=== PATIENT | female | born 1985 | race Caucasian/White ===

== ENCOUNTER → 2017-10-28 16:27 | Outpatient (CLI) | payer OTHER, MEDICAID, SELFPAY ==
[2017-10-28 18:38] LABS: Follicle Stimulating Hormone 2.44 mIU/mL
[2017-10-28 18:51] LABS: TSH w/ Reflex to FT4 2.49 uIU/mL (0.47-4.68)
[2017-11-01 16:22] LABS: Progesterone 13.5 ng/mL
[2017-11-02 15:13] LABS: Estrogen 319.5 pg/mL
== END ==
PROVIDERS: PCP Family Medicine; Visit Provider Family Medicine
DX: N92.6 Irregular menstruation, unspecified (principal)
CPT/HCPCS: 36415; 82672; 83001; 84144; 84443

== ENCOUNTER → 2019-09-28 08:39 | Outpatient (CLI) | payer OTHER, SELFPAY ==
--- NOTE | 2019-09-28 08:41 | DI.CT.S_ITS ---
PROCEDURE: CT SINUS SCREEN WO CON INDICATIONS: recurrent sinus infection TECHNIQUE: Noncontrast 3.0 mm axial images acquired from the frontal sinuses to the mid-sella, with coronal and sagittal reformats. For radiation dose reduction, the following was used: automated exposure control, adjustment of mA and/or kV according to patient size. COMPARISON: None. FINDINGS: Image quality: Excellent. Maxillary Sinuses: No bony remodeling or destruction. Sinuses are clear. Ethmoid Air Cells: No bony remodeling or destruction. Sinuses are clear. Sphenoid Sinuses: No bony remodeling or destruction. Sinuses are clear. Frontal Sinuses: No bony remodeling or destruction. Sinuses are clear. Ostiomeatal Complexes: Ostiomeatal complexes are patent. The ostiomeatal complexes are constitutionally narrowed with infraorbital septations, left more prominent than right. Miscellaneous: Visualized intra-orbital contents are normal. Bilateral lashae bullosa are seen, left larger than right. There is mild to moderate rightward nasal septal deviation. IMPRESSION: No significant active paranasal sinus disease is seen. Bilateral lashae bullosa with mild to moderate rightward nasal septal deviation. Narrowed ostiomeatal complexes. Dictated by: René Ortiz M.D. on 09/28/2019 at 8:26 Approved by: René Ortiz M.D. on 09/28/2019 at 8:27
== END ==
PROVIDERS: PCP Family Medicine; Referring Provider Family Medicine; Visit Provider Family Medicine
DX: J32.9 Chronic sinusitis, unspecified (principal); J34.3 Hypertrophy of nasal turbinates; J34.2 Deviated nasal septum
CPT/HCPCS: 70486

== ENCOUNTER → 2020-04-22 12:11 | Outpatient (CLI) | payer OTHER, SELFPAY ==
--- NOTE | 2020-04-22 12:12 | DI.RAD.S_ITS ---
PROCEDURE: XR CERVICAL SPINE 2V OR 3V INDICATIONS: neck pain with radiculopathy right arm TECHNIQUE: 3 view(s) of the cervical spine were acquired. COMPARISON: None. FINDINGS: Bones: No fractures or dislocations to the T1 level. The lateral masses of C1 appear intact on the odontoid view. No suspicious bony lesions. Soft tissues: No prevertebral soft tissue swelling. IMPRESSION: Mild C5-6 joint space narrowing, no subluxation found. No trauma or subluxation identified. Dictated by: Lloyd Duke M.D. on 04/22/2020 at 14:28 Approved by: Lloyd Duke M.D. on 04/22/2020 at 14:29
== END ==
PROVIDERS: PCP Family Medicine; Referring Provider Family Medicine; Visit Provider Family Medicine
DX: M54.2 Cervicalgia (principal); M48.02 Spinal stenosis, cervical region; M54.12 Radiculopathy, cervical region
CPT/HCPCS: 72040

== ENCOUNTER → 2022-07-27 09:52 | Outpatient (CLI) | payer OTHER, SELFPAY ==
[2022-07-27 12:29] LABS: Free T4, Direct Thyroxine 0.92 ng/dL (0.78-2.19)
[2022-07-27 12:43] LABS: Thyroid Stimulating Hormone 4.21 uIU/mL (0.47-4.68)
[2022-07-28 06:36] LABS: Varicella IgG Antibody 1363 index (Immune >165)
[2022-08-06 04:36] LABS: Anti Mullerian Hormone 0.841 ng/mL (.)
== END ==
PROVIDERS: PCP Family Medicine; Referring Provider Obstetrics & Gynecology; Visit Provider Obstetrics & Gynecology
DX: Z31.69 Encounter for other general counseling and advice on procreation (principal)
CPT/HCPCS: 36415; 82397; 84439; 84443; 86762; 86787

== ENCOUNTER 2024-10-24 00:39 | Emergency (ER) | payer BC, SELFPAY ==
[2024-10-24 00:58] VITALS: BP 119/66; PULSE 61; RESP 17; TEMP 36.6; O2SAT 97; BMI 23.5
--- NOTE | 2024-10-24 02:11 | ED_ITS ---
HPI - Skin/Abscess/Foreign Bdy General Chief complaint: Skin/Abscess/Foreign Body Stated complaint: Piece of earbud stuck in rt ear Time Seen by Provider: 10/24/24 02:09 Source: patient Mode of arrival: Ambulatory Limitations: no limitations History of Present Illness HPI narrative: 39-year-old female presenting for foreign body to the ear, states that she placed a ear bud in the right ear proximally 2 hours ago and it got stuck. Denies any other injury or issues at this time. Related Data Previous Rx's ?Medication ?Instructions ?Recorded dextroamphetamine-amphetamine 5 mg 5 mg PO BID #60 tab s 04/14/24 tablet (Adderall) dextroamphetamine-amphetamine 5 mg 5 mg PO BID #60 tab s 04/14/24 tablet (Adderall) dextroamphetamine-amphetamine 5 mg 5 mg PO BID #60 tab s 04/14/24 tablet (Adderall) Allergies Allergy/AdvReac Type Severity Reaction Status Date / Time No Known Drug Allergies Allergy Verified 10/24/24 00:58 Review of Systems Review of Systems Narrative: General: Denies fever, chills, weight loss HEENT: Positive foreign body of the right ear Denies headache, eye drainage, eye irritation, head trauma, sore throat, voice change Cardiovascular: Denies any chest pain, palpitations, tachycardia Respiratory: Denies any shortness of breath, cough, wheeze, stridor GI/: Denies any abdominal pain, nausea, vomiting, diarrhea, bright red blood per rectum, melanotic stools, urinary frequency, urinary retention, dysuria, hematuria MSK: Denies any joint pain, muscle pains, swelling Skin: Denies any rashes, lesions, discoloration Neuro: Denies any headache, lightheadedness, dizziness, fainting, weakness Psych: Denies SI/HI Patient History Medical History Attention deficit disorder Acne Chronic headaches Anxiety Depression Asthma Hayfever Bulimia Surgical History History of dilation and curettage (~2001) [place] teeth extracted Family History (Updated 11/10/23 @ 11:15 by Marni Ramos RN) Father Family estrangement Narcissistic personality disorder Grandfather Dementia Prostate cancer Grandmother Breast cancer Grandfather Heart disease Hypertension High cholesterol Mental health problem Diabetes mellitus Stroke Mother Abnormal skin growth Preeclampsia Aunt Diabetes mellitus Uncle Heart attack Drug abuse Family/Other Congenital malformation due to thalidomide Social History marital status: number of children: 0 household members: spouse lives independently: Yes caregiver/support person: No housing: house pets and animals: Yes (dogs) education level: college (some college) 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) current occupational exposures/hazards: No special hebert needs: No travel history: over 6 months ago seatbelt use: always helmet use: Yes water heater temp set < 120 deg: Yes working smoke detector in home: Yes fire extinguisher in home: Yes carbon monox detector in home: Yes firearms in home: Yes firearms unloaded and locked: Yes do you feel safe at home: Yes second hand exposure: No alcohol intake: former (very occasionally prior to ) substance use type: does not use and marijuana (occasional edibles when slipped disc in neck acts up, not while /) during the past year weight has: decreased > 10 lbs (intentional w/ diet and exercise) well-balanced diet: rarely or never daily servings fruits/ve-1 caffeine: No (stopped w/ ) eating out: rarely or never Type(s) of exercise: weight lifting and running frequency: 3-4 times per week duration: 15-30 minutes/day Smoking Status: Never smoker Exam Narrative Exam Narrative: General: Cooperative, well-developed, not in acute distress HEENT: Yellow foreign body noted to the right ear Normocephalic, atraumatic, PERRLA, normal sclera, eyelids normal Neck: Active full range of motion, atraumatic Chest: Normal to inspection, negative crepitus, no overlying erythema ecchymo sis Respiratory: Normal respiratory effort, not in acute respiratory distress, clear to auscultation bilaterally negative cough, wheeze, tachypnea, rhonchi, rales Cardiology: Regular rate rhythm negative gallop, murmur, rubs GI/: No tenderness to palpation, soft, non rigid, normal to inspection, exam deferred MSK: Full active range of motion in all 4 extremities, atraumatic, no tenderness to palpation of any bony prominences Skin: No rashes or lesions noted Neuro: Alert awake oriented x3, moves all 4 extremities spontaneously, cranial nerves intact, able to answer all questions appropriately follows commands appropriately Psych: Cooperative, negative suicidal or homicidal ideations Initial Vital Signs Initial Vital Signs: Vital Signs Temperature 97.9 F 10/24/24 00:58 Pulse Rate 61 10/24/24 00:58 Respiratory Rate 17 10/24/24 00:58 Blood Pressure 119/66 10/24/24 00:58 Pulse Oximetry 97 10/24/24 00:58 Oxygen Delivery Method Room Air 10/24/24 00:58 Course Vital Signs Vital signs: Vital Signs - 8 hr 10/24/24 00:58 Temperature 97.9 F Pulse Rate 61 Respiratory Rate 17 Blood Pressure 119/66 Pulse Oximetry 97 Oxygen Delivery Method Room Air MDM - Skin/Abscess/Foreign Bdy Differential Diagnosis Differential diagnosis: Likely other (Otitis media, otitis externa, foreign body) MDM Narrative Medical decision making narrative: Patient is a 39-year-old female presenting for foreign body of the right ear, states 2 hours ago was using an ear bud and it got stuck, on exam yellow ear bud was noted in the inner ear canal was able to remove with alligator forceps, post removal did not show any abrasion laceration no indication for further intervention or workup at this time. Patient was given strict return precautions verbalized understanding of this and agrees to being discharged home with outpatient follow up Discharge Plan Departure Patient Disposition: Home Clinical Impression: Foreign body in ear Activity Restrictions/Additional Instructions: Please follow up with the primary care doctor as needed Please read the discharge instructions sheet carefully and bring all papers to all doctor follow-up visits, as it may contain information that your doctor may want to see. Disease processes change and evolve, if your symptoms worsen or if you develop any new symptoms that are concerning to you please return for evaluation. Your evaluation today does not show any evidence of any life- threatening/serious illnesses requiring admission to the hospital or surgery. Please follow-up with your doctor for re-evaluation in approximately 1 day. Seek immediate medical attention for any worrisome symptoms. *If you do not have a primary care provider please contact the [facility] Resource line at [phone]. They will ask some questions about your medical history and help get you set up with a doctor in the community. Prescriptions: No Action dextroamphetamine-amphetamine [Adderall] 5 mg tablet 5 mg PO BID Qty: 60 0RF Rx Instructions: Refill 1 dextroamphetamine-amphetamine [Adderall] 5 mg tablet 5 mg PO BID Qty: 60 0RF Rx Instructions: administer doses at least 4-6 hours apart Refilled 2 dextroamphetamine-amphetamine [Adderall] 5 mg tablet 5 mg PO BID Qty: 60 0RF Rx Instructions: administer doses at least 4-6 hours apart Refill 3 Referrals: Igor Resendez DO [Primary Care Provider, Family Practice] Stand Alone Forms: Patient Portal/API
[2024-10-24 02:24] VITALS: BP 106/59; PULSE 78; RESP 16; O2SAT 98
== END 2024-10-24 02:29 | disposition home or self-care (01) ==
PROVIDERS: Emergency Provider Student in an Organized Health Care Education/Training Program; PCP Family Medicine
DX: T16.1XXA Foreign body in right ear, initial encounter (principal); W44.G1XA Audio device entering into or through a natural orifice, initial encounter
CPT/HCPCS: 69200; 99281; 99282

== ENCOUNTER → 2024-12-20 08:32 | Outpatient (CLI) | payer BC, SELFPAY ==
--- NOTE | 2024-12-20 08:33 | DI.US.S_ITS ---
PROCEDURE: US OB <= 14 WEEKS FETUS INDICATIONS: DATING AND VIABILITY OUTSIDE/PRIOR DATING DATA: Last menstrual period (LMP): 11/05/2024. LMP-based estimated date of delivery (DILMA): 08/12/2025. First dating scan (date and location): 12/20/2024. TECHNIQUE: Real-time scanning was performed of the fetus and maternal pelvic organs, with image documentation. Endovaginal scanning was also performed to better visualize the fetus and maternal ovaries. COMPARISON: None. FINDINGS: Embryo: No intrauterine gestational sac. No pole. Heart rate: Not detected at this time. Maternal organs: Ovaries are thin normal limits. Left ovarian anechoic cyst measuring 2.1 x 1.5 x 1.5 cm. Endometrium measures 12 mm. Tubular structure at the right adnexa measuring 0.3 cm in diameter. IMPRESSION: 1. of uncertain location. No intrauterine gestational sac or pole. -Recommend trending beta hCG and if indicated short-term follow-up ultrasound. 2. Suspected right hydrosalpinx. 3. Small anechoic left ovarian cyst measuring 2.1 cm. We strive to produce accurate, complete, and clear reports of imaging services. To assist us in improving patient care, this report was composed using standard report templates and voice recognition software. Therefore, it may contain abnormal punctuation, insertions and/or omissions. Occasional wrong-word or sound-alike substitutions may occur. Though we review the report and make efforts to correct it, we do recommend that the report be read carefully in proper context to recognize any text inaccuracies. Dictated by: Brendan Hdz M.D. on 12/20/2024 at 13:10 Approved by: Brendan Hdz M.D. on 12/20/2024 at 13:18
== END ==
PROVIDERS: PCP Family Medicine; Referring Provider Nurse Practitioner Obstetrics & Gynecology; Visit Provider Nurse Practitioner Obstetrics & Gynecology
DX: O36.80X0 Pregnancy with inconclusive fetal viability, not applicable or unspecified (principal); O09.519 Supervision of elderly primigravida, unspecified trimester; O26.859 Spotting complicating pregnancy, unspecified trimester; O34.80 Maternal care for other abnormalities of pelvic organs, unspecified trimester; N83.202 Unspecified ovarian cyst, left side
CPT/HCPCS: 76801; 76817

== ENCOUNTER 2024-12-21 11:09 | Day surgery (SDC) | payer BC, SELFPAY ==
--- NOTE | 2024-12-21 | PATH_ITS ---
[facility] Accession Number: [id number] No. of containers..03 Tissue . 01 Material submitted: . PART A: body - PERITONEAL PART B: product of conception - PRODUCTS OF CONCEPTION PART C: fallopian tube - RIGHT FALLOPIAN TUBE . 01 Diagnosis: A. PERITONEAL: Detached, scant products of conception. Fibroconnective tissue with patchy involvement by endometriosis, patchy calcifiction, and peritoneal inclusion cysts. . B. PRODUCTS OF CONCEPTION: Products of conception present. Outside consultation pending to exclude molar gestation; results will be reported as an addendum. . C. RIGHT FALLOPIAN TUBE: Products of conception present, consistent with ectopic gestation. Patchy regions suspicious for involvement by endometriosis; electrocautery artifact obscures. V 12/31/2024 1301 Local . 01 Electronically signed: . Yvonne Bright MD, Pathologist NPI- [id number] . 01 Gross description: . A. Received in formalin with two identifiers and peritoneal biopsies, are two irregular ferraro membranous soft tissue fragments 1.0 x 0.7 x 0.3 cm and 2.7 x 0.3 x 0.2 cm. The fragments are submitted intact in cassette A1. B. Received in formalin with two identifiers and products of conception, are multiple fragments of red-brown to ferraro soft tissue admixed with hemorrhagic material aggregating to 4.8 x 4.7 x 0.9 cm. No tissue is identified. The specimen is filtered and submitted entirely in cassettes B1-B4. C. Received in formalin with two identifiers and right fallopian tube, is a fimbriated fallopian tube 7.9 cm in length by 1.5 cm in diameter. The serosa is violaceous with a full thickness defect 1.6 cm in greatest dimension located near the distal end of the tube. Sectioning reveals the lumen to be dilated and contain hemorrhagic material at the area of serosal defect while the remaining lumen is stellate and unremarkable. Dimension [employer]ar[employer] Supervisor sections to include one-half of bisected fimbriae and cross-sections of defect are submitted in cassettes C1-C2. ([id number]) /ALEX 12/23/2024 2314 Local . 01 Pathologist provided ICD-10: O00.119 . 01 CPT . 334845, 610695, 538001 Specimen Comment: A courtesy copy of this report has been sent to [phone] Performed at: [address] [facility] [address] [address], [place], [place] [id number] MD Regis Hernandez MD Phone: [phone]
--- NOTE | 2024-12-21 11:18 | PM.PREOP ---
Pre-operative Note COVID-19 COVID-19 status: Not tested Interval Note History & Physical reviewed/Exam performed by Physician: Yes Changes to H&P: No
[2024-12-21 11:31] VITALS: BMI 23.8
[2024-12-21 11:43] VITALS: BP 108/72; PULSE 60; RESP 16; TEMP 36.7; O2SAT 100
[2024-12-21 11:48] LABS: Add Manual Diff / Slide Review NO; Hematocrit 40.8 % (36-46); Hemoglobin 13.8 g/dL (12.0-16.0); Lymphocytes Absolute Auto 2400 /uL (1100-4500); Mean Corpuscular HGB Conc 33.9 % (30-36); Mean Corpuscular Hemoglobin 29.9 PG (26-34); Mean Corpuscular Volume 88.2 fL (80-100); Platelet Count 198 X10^3/uL (150-400)
[2024-12-21] MEDS: LACTATED RINGERS 1,000 ML 42 ML IV ×2 (11:50→14:12)
[2024-12-21] MEDS: SCOPOLAMINE 1 PATCH TOP (11:54)
[2024-12-21] MEDS: ACETAMINOPHEN IV 1,000 MG/100 ML VIAL 400 MG IV (11:54)
--- NOTE | 2024-12-21 13:15 | SUR.OPER ---
Lithotomy on padded OR bed. [place] Pad Positioner under torso. Head on pillow, arms padded and tucked at sides. Legs secured in padded yellow fins stirrups. Purple strap across chest
[2024-12-21] MEDS: BUPivacaine 0.25% W/ EPI (PF) 30 ML VIAL INJ (13:29)
[2024-12-21] MEDS: SODIUM CHLORIDE 0.9% INJ (13:53)
[2024-12-21] MEDS: VASOPRESSIN INJ (13:53)
[2024-12-21] MEDS: TRANEXAMIC ACID 1,000 MG VIAL 1000 MG INJ (14:52)
[2024-12-21 15:21] VITALS: BP 100/51; PULSE 78; RESP 14; TEMP 36.4; O2SAT 97
[2024-12-21 15:26] VITALS: BP 94/52; PULSE 62; RESP 15; O2SAT 98
[2024-12-21 15:33] VITALS: BP 95/52; PULSE 60; RESP 13; O2SAT 99
[2024-12-21 15:36] VITALS: BP 91/52; PULSE 72; RESP 13; O2SAT 100
[2024-12-21 15:40] VITALS: BP 96/53; PULSE 62; RESP 16; O2SAT 100
--- NOTE | 2024-12-21 16:08 | PM.GYNOP.1 ---
Operative Date/Time/Diagnoses Date of procedure: 12/21/24 Time of procedure: 13:15 Pre-op diagnosis: Ectopic , tubal, right Post-op diagnosis: other (Same as above, minimal pelvic endometriosis) Procedure & Clinicians Procedure: Procedures Operation Date: 12/21/24 12:00 Actual Procedure Side Surgeon p Robotic assisted diagnostic laparoscopy with right salpingectomy Right Dionte Smalls MD Indications: Farzana is a 39-year-old , LMP 11/05/2024, who presents for evaluation and admission due to a probable right sided ectopic . Patient had a serum HCG determinations on 12/17/2024 (11,387), and 12/19/2024 (16,201). Although the slope of rise is appropriate, a pelvic ultrasound performed 12/20/2024 shows: FINDINGS: Embryo: No intrauterine gestational sac. No pole. Heart rate: Not detected at this time. Maternal organs: Ovaries are thin normal limits. Left ovarian anechoic cyst measuring 2.1 x 1.5 x 1.5 cm. Endometrium measures 12 mm. Tubular structure at the right adnexa measuring 0.3 cm in diameter. IMPRESSION: 1. of uncertain location. No intrauterine gestational sac or pole. -Recommend trending beta hCG and if indicated short-term follow-up ultrasound. 2. Suspected right hydrosalpinx. 3. Small anechoic left ovarian cyst measuring 2.1 cm. The patient has not had any significant vaginal bleeding since the diagnosis of was made, and up until earlier today was not having any pelvic/abdominal discomfort. She is now however having slight discomfort in the right lower quadrant and feels somewhat lightheaded although it is uncertain whether this is due to being NPO, emotional stress, or due to the ongoing ectopic. She will be admitted now for robotically assisted laparoscopy with plans for possible right-sided salpingostomy, possible right salpingectomy, and possible right salpingo-oophorectomy. Surgeon: Dionte Smalls Anesthesia Type: General Operative Notes Findings: Unruptured proximal isthmic ectopic , right fallopian tube. Minimal superficial pelvic peritoneal endometriosis in the posterior and anterior cul-de-sacs. Closure Type: primary Specimen(s): right tube, other (Perineal biopsies) and products of conception Applied: none Estimated blood loss (mL): 75 Blood products transfused: none Procedure in detail: With the patient under satisfactory general anesthesia in the modified dorsal lithotomy position, the patient was prepped and draped in the usual manner for robotic assisted laparoscopy. A pre-surgical safety time-out was then taken in accordance with Main OR protocols. A 12 cm laparoscopy port was then inserted through the supraumbilical skin after infiltration with 0.5% Marcaine with epinephrine, an appropriate transverse incision, and insufflation of the abdominal cavity with carbon dioxide using a varies needle. Correct placement of the trocar was confirmed by direct visualization using a 5 mm scope. An 8 mm trocar was then placed at the level of the umbilicus in the left middle quadrant after infiltration with 0.5% Marcaine with epinephrine. A 2nd 8 mm trocar was then placed through the skin of the right mid quadrant at the level of the umbilicus after infiltration of the skin and subcutaneous tissues with 0.5% Marcaine with epinephrine. A 3rd 8 mm trocar and sleeve were then inserted in the lower right middle quadrant after infiltration of the skin with 0.5% Marcaine with epinephrine. A 5th port was then placed as an assist port using a 5 mm port 4 cm above the umbilicus 10 cm lateral to the umbilicus and 3 cm lateral to the 8 mm trocar placed at the level of the umbilicus. This port was used as an assist port during the course of the operation. For patient was placed in 27 degree Trendelenburg and the abdomen was inflated with carbon dioxide. Robotic docking was then accomplished without incident and inspection of the pelvis revealed an unruptured ectopic with hematosalpinx extending from the cornua to the junction of the mid and lateral 3rd of the right fallopian tube was noted. Attempts to reach the through the fimbrial end of the tube with a Cadiere were unsuccessful and a small incision overlying the mid/distal portion of the ectopic was made using monopolar current from the robotic scissors after injecting 15 cc of a solution of 1 ampule of vasopressin in 100 cc of normal saline into the mesosalpinx. Removal of chorionic villi/POCs was performed without difficulty and submitted as a pathologic specimen. Unfortunately there was continuous bleeding from within the tubal lumen as well as the site of the salpingostomy which eventually required removal of the tube despite our best efforts to control bleeding. A bipolar fenestrated forceps was used to coagulate the mesosalpinx and robotic scissors were used to divide the tissues after coagulation. The tube was passed off through 1 of the ports as a surgical specimen for pathologic evaluation. Inspection of the posterior and anterior cul-de-sacs revealed superficial endometriotic implants which were destroyed with judicious use of monopolar current applied through the monopolar scissors. Areas of adhesions were excised and submitted as a separate specimen none of peritoneal biopsies. Pelvis was thoroughly irrigated and reinspected for abnormalities. There were no other abnormalities and no areas of rigid will bleeding. The operation was then terminated by the thinning of the pneumoperitoneum, undocking of the robot, and removal of the trocars/sleeves. The umbilical incision was then closed with a 0 Vicryl interrupted on the fascia and all the skin incisions were closed with 4-0 Monocryl suture using inverted interrupted stitches. Appropriate dressings were applied, and the patient was awakened from anesthesia. She tolerated the procedure well and was transferred to the PACU for a period of observation and recovery. Complications: none Post-operative Condition: stable Disposition: PACU Plan for aftercare: Routine postoperative care with follow-up planned for 2 weeks after surgery
--- NOTE | 2024-12-21 16:53 | SUR.PHASEII ---
Leaving Phase 2 pt became very nauseated; spoke to surgeon who ordered diphenhydramine 25mg x 1; PACU Pyxis allowed override however no stock available in PACU Pyxis so pt given Quease-eaze which she states is working quite well for the moment; asked pt to call office if persistent N/V, she verbalized understanding with this updated plan of care.
== END 2024-12-21 16:35 | disposition home or self-care (01) ==
PROVIDERS: PCP Family Medicine; Referring Provider Family Medicine; Visit Provider Obstetrics & Gynecology
PROC: 8E0W4CZ Robotic Assisted Procedure of Trunk Region, Percutaneous Endoscopic Approach (ICD-10-PCS; CPT 58662; principal; 2024-12-21 12:00)
DX: O00.101 Right tubal pregnancy without intrauterine pregnancy (principal); N80.321 Superficial endometriosis of the posterior cul-de-sac; N80.311 Superficial endometriosis of the anterior cul-de-sac
CPT/HCPCS: 59151; 58662; S2900; 85025; J0131; J1100; J1885; J2405; J2704; J3010

== ENCOUNTER 2025-01-23 23:17 | Emergency (ER) | payer BC, SELFPAY ==
[2025-01-23 23:40] VITALS: BP 123/76; PULSE 82; RESP 16; O2SAT 100; BMI 23.5
== END 2025-01-23 23:52 | disposition left against medical advice (07) ==
PROVIDERS: Emergency Provider Emergency Medicine; PCP Family Medicine
DX: Z53.21 Procedure and treatment not carried out due to patient leaving prior to being seen by health care provider (principal)
CPT/HCPCS: 99281

== ENCOUNTER 2025-02-02 15:38 | Emergency (ER) | payer BC, SELFPAY ==
[2025-02-02 15:47] VITALS: BP 127/74; PULSE 68; RESP 18; TEMP 36.9; O2SAT 98; BMI 23.9
[2025-02-02 16:24] LABS: Alanine Aminotransferase 28 IU/L (<35); Albumin 4.4 g/dL (3.5-5.0); Albumin Globulin Ratio 1.5 (1.0-2.8); Alkaline Phosphatase 48 U/L (38-126); Blood Urea Nitrogen 8 mg/dL (7-17); Calcium 8.9 mg/dL (8.4-10.2); Carbon Dioxide 26 mmol/L (22-32); Chloride 104 mmol/L (98-107); Estimated Glomerular Filt Rate > 60 mL/min (>60); Globulin 3.0 g/dL (1.7-4.1); Glucose 106 mg/dL (70-99); HEMOLYSIS < 15 (0-50); Lipase 77 U/L (23-300); Potassium 3.7 mmol/L (3.4-5.1); Sodium 136 mmol/L (137-145); Total Protein 7.4 g/dL (6.3-8.2)
[2025-02-02 16:25] LABS: Add Manual Diff / Slide Review NO; Hematocrit 38.3 % (36-46); Hemoglobin 13.0 g/dL (12.0-16.0); Lymphocytes Absolute Auto 2500 /uL (1100-4500); Mean Corpuscular HGB Conc 33.9 % (30-36); Mean Corpuscular Hemoglobin 30.0 PG (26-34); Mean Corpuscular Volume 88.5 fL (80-100); Platelet Count 220 X10^3/uL (150-400)
--- NOTE | 2025-02-02 16:31 | ED.ABDPAIN ---
HPI - Abdominal Pain General Chief Complaint: Abdominal Pain Stated Complaint: Gallbladder pn, waves for 2wks Time Seen by Provider: 02/02/25 16:25 History of Present Illness HPI narrative: Patient is a healthy 39-year-old female presenting today with right upper quadrant pain. For the last 2 weeks she has had some right upper quadrant pain that radiates up to her shoulder she feels nauseous at times. Over the last 48 hours she has had increasing stress in her life. He is having again some pain but took some ibuprofen prior to arrival in his now feeling better. No fever or chills. She also had a right-sided ectopic with surgery on 12/21/2024. She reports that they have been monitoring her HCV and has been decreasing. She has not yet had a menstrual period but is spotting some. Related Data Home Medications ?Medication ?Instructions ?Recorded ?Confirmed cholecalciferol (vitamin D3) 250 250 mcg PO DAILY 12/12/24 01/04/25 mcg (10,000 unit) capsule vitamin-ferrous sulfate tab PO 12/12/24 01/04/25 27 mg iron-folic acid 0.8 mg tablet thyroid (pork) 15 mg tablet (CASING IN LINE FEEDER 15 mg PO DAILY 12/12/24 01/04/25 Thyroid) Cmp-Testosterone 01/23/25 progesterone micronized 200 mg 200 mg PO ONCE PM 01/23/25 01/23/25 capsule Previous Rx's ?Medication ?Instructions ?Recorded dextroamphetamine-amphetamine 5 mg 5 mg PO BID #60 tabs 11/20/24 tablet (Adderall) dextroamphetamine-amphetamine 5 mg 5 mg PO BID #60 tabs 11/20/24 tablet (Adderall) dextroamphetamine-amphetamine 5 mg 5 mg PO BID #60 tabs 11/20/24 tablet (Adderall) acetaminophen 300 mg-codeine 30 mg 1 tab PO Q4-6H PRN pain #10 tabs 12/22/24 tablet Allergies Allergy/AdvReac Type Severity Reaction Status Date / Time No Known Drug Allergies Allergy Verified 02/02/25 15:50 Patient History Medical History (Updated 02/02/25 @ 18:24 by Yamileth Holman DO) Seborrheic dermatitis of scalp Acne Chronic headaches Anxiety Depression Asthma Hayfever Bulimia Surgical History (Updated 12/26/24 @ 08:10 by Marni Ramos RN) H/O unilateral salpingectomy (~12/21/24) History of dilation and curettage (~2001) [place] teeth extracted Family History (Updated 11/10/23 @ 11:15 by Marni Ramos RN) Father Family estrangement Narcissistic personality disorder Grandfather Dementia Prostate cancer Grandmother Breast cancer Grandfather Heart disease Hypertension High cholesterol Mental health problem Diabetes mellitus Stroke Mother Abnormal skin growth Preeclampsia Aunt Diabetes mellitus Uncle Heart attack Drug abuse Family/Other Congenital malformation due to thalidomide Social History marital status: number of children: 0 household members: spouse lives independently: Yes caregiver/support person: No housing: house pets and animals: Yes (dogs) education level: college (some college) 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) current occupational exposures/hazards: No special hebert needs: No travel history: recent (domestic only) seatbelt use: always helmet use: Yes water heater temp set < 120 deg: Yes working smoke detector in home: Yes fire extinguisher in home: Yes carbon monox detector in home: Yes firearms in home: Yes firearms unloaded and locked: Yes do you feel safe at home: Yes second hand exposure: No alcohol intake: current substance use type: does not use and marijuana (occasional edibles when slipped disc in neck acts up, not while /) during the past year weight has: remained stable (intentional w/ diet and exercise) well-balanced diet: rarely or never daily servings fruits/ve-1 (1-2) caffeine: No (3-4 cups decaf since becoming ) eating out: rarely or never Type(s) of exercise: walking, weight lifting and running frequency: 3-4 times per week duration: 15-30 minutes/day Exam Initial Vital Signs Initial Vital Signs: Vital Signs Temperature 98.5 F 02/02/25 15:47 Pulse Rate 68 02/02/25 15:47 Respiratory Rate 18 02/02/25 15:47 Blood Pressure 127/74 02/02/25 15:47 Pulse Oximetry 98 02/02/25 15:47 Oxygen Delivery Method Room Air 02/02/25 15:47 GENERAL: Alert well-appearing 39-year-old female and in no distress. HEENT: Head atraumatic,EOMI, pupils reactive, face symmetric, [moist] mucous membranes CARDIOVASCULAR: Regular rate and rhythm without murmurs, rubs or gallops. RESPIRATORY: Breath sounds equal bilaterally, no wheezes rales or rhonchi. ABDOMEN: Soft, nontender. Normoactive bowel sounds all 4 quadrants. No guarding or rebound. Positive Mauro's sign EXTREMITIES: Normal range of motion, no clubbing or edema. Neurovascularly intact NEUROLOGICAL: Alert and oriented x4.Normal gait and speech. Cranial nerves II through XII grossly intact. SKIN: Warm, dry, no laceration, no petechiae, no rashes or lesions. Course Orders Ordered: Discontinued Medications Ondansetron HCl (Ondansetron 4 Mg/2 Ml Inj) 4 mg IV NOW PRN PRN Reason: Nausea And Vomiting Ondansetron HCl (Ondansetron 4 Mg Odt) 4 mg PO NOW PRN PRN Reason: Nausea And Vomiting Vital Signs Vital signs: Vital Signs - 8 hr 02/02/25 15:47 Temperature 98.5 F Pulse Rate 68 Respiratory Rate 18 Blood Pressure 127/74 Pulse Oximetry 98 Oxygen Delivery Method Room Air MDM - Abdominal Pain Lab Data 02/02/25 16:00 02/02/25 16:00 Labs: Lab Results 02/02/25 02/02/25 Range/Units 16:00 16:10 WBC 7.7 (4.5-11.0) X10^3/uL RBC 4.33 (4.0-5.2) X10^6/uL Hgb 13.0 (12.0-16.0) g/dL Hct 38.3 (36-46) % MCV 88.5 (80-100) fL MCH 30.0 (26-34) PG MCHC 33.9 (30-36) % RDW 13.3 (11.6-14.8) % Plt Count 220 (150-400) X10^3/uL Neut % (Auto) 59.8 (50-75) % Lymph % (Auto) 32.2 (25-40) % [place] % (Auto) 6.5 (3-14) % Eos % (Auto) 1.0 L (2-4) % Baso % (Auto) 0.5 (0-2) % Neut # (Auto) 4600 (0477-6733) /uL Lymph # (Auto) 2500 (6508-5480) /uL [place] # (Auto) 500 (0-900) /uL Eos # (Auto) 100 (0-450) /uL Baso # (Auto) 0 (0-100) /uL Sodium 136 L (137-145) mmol/L Potassium 3.7 (3.4-5.1) mmol/L Chloride 104 (98-107) mmol/L Carbon Dioxide 26 (22-32) mmol/L BUN 8 (7-17) mg/dL Creatinine 0.79 (0.52-1.04) mg/dL Estimated GFR > 60 (>60) mL/min BUN/Creatinine Ratio 10.1 (6-22) Glucose 106 H (70-99) mg/dL Calcium 8.9 (8.4-10.2) mg/dL Total Bilirubin 0.4 (0.2-1.3) mg/dL AST 27 (14-36) IU/L ALT 28 (<35) IU/L Alkaline Phosphatase 48 (38-126) U/L Total Protein 7.4 (6.3-8.2) g/dL Albumin 4.4 (3.5-5.0) g/dL Globulin 3.0 (1.7-4.1) g/dL Albumin/Globulin Ratio 1.5 (1.0-2.8) Lipase 77 (23-300) U/L HCG, Quant 199.63 mIU/mL Urine RBC None seen (0-5/HPF) Urine WBC None seen (0-5/HPF) Ur Squamous Epith Cells 0-1 /hpf (0-5/HPF) Urine Bacteria None seen (None) Vol Urine Centrifuged 10ml (spun) Point of care testing: Point of Care Testing Test Results Positive Urine Dip Bedside Urine Glucose Negative Bedside Urine Bilirubin - Negative Bedside Urine Ketone - Negative Urine Specific [place] 1.0 Bedside Urine Occult Blood +++ Bedside Urine pH 7.0 Bedside Urine Protein - Negative Bedside Urine Urobilinogen - Negative Bedside Urine Nitrite - Negative Bedside Urine Leukocytes - Negative Esterase Imaging Data US - abdomen: Radiologist's Impression: PROCEDURE: US ABDOMEN LIMITED INDICATIONS: RUQ PAIN TECHNIQUE: Real-time scanning was performed of the abdominal and retroperitoneal organs, with image documentation. COMPARISON: None. FINDINGS: Liver: Homogeneous echotexture. No evidence of focal mass lesion. No intra hepatic biliary ductal dilatation Gallbladder: Sonolucent without cholelithiasis. No gallbladder wall thickening. No pericholecystic fluid or Mauro's sign. Common Bile Duct: 3.7 mm. Pancreas: Unremarkable as visualized Right Kidney: Appropriate in size and echotexture. No evidence of hydronephrosis. No shadowing calculi. No solid or cystic mass lesion. IMPRESSION: Unremarkable right upper quadrant ultrasound Approved by: Delmar Bell M.D. on 02/02/2025 at 17:13 MDM Narrative Medical decision making narrative: Patient is a healthy 39-year-old female who had right-sided ectopic 6 weeks presenting today with right upper quadrant pain. Pain has come and going no fever or chills. On exam she is mildly tender with slight Mauro's sign. Blood work has been reviewed CBC shows no leukocytosis no anemia CMP no electrolyte abnormalities bilirubin 0.4 AST ALT within normal limits lipase 77 Urinalysis negative Ultrasound shows no cause for right upper quadrant pain no cholelithiasis or cholecystitis HCG is 199 no records of prior numbers the patient reports it is being followed by OB, it was 350 a few days prior per patient At this time no cause for right upper quadrant pain. No evidence of cholecystitis cholelithiasis no leukocytosis normal liver enzymes normal bilirubin no evidence of pancreatitis. At this time recommend outpatient workup including possible HIDA scan no need for any further workup here in the ED Discharge Plan Departure Patient Disposition: Home Clinical Impression: Abdominal pain Instructions: DI for General Gallbladder Conditions Activity Restrictions/Additional Instructions: *You have been diagnosed with right upper quadrant pain *What to do: At this time you may need further testing crutches a HIDA scan or other test please talk with your primary care *Continue to take medications as directed *Follow up with your primary care provider in 2-3 days or call [phone] *Return to ER if you should have increasing pain nausea vomiting fever or any new, worsening or concerning symptoms Prescriptions: No Action dextroamphetamine-amphetamine [Adderall] 5 mg tablet 5 mg PO BID Qty: 60 0RF Rx Instructions: administer doses at least 4-6 hours apart Refilled 2 dextroamphetamine-amphetamine [Adderall] 5 mg tablet 5 mg PO BID Qty: 60 0RF Rx Instructions: administer doses at least 4-6 hours apart Refill 3 dextroamphetamine-amphetamine [Adderall] 5 mg tablet 5 mg PO BID Qty: 60 0RF Rx Instructions: Refill 1 acetaminophen-codeine 300-30 mg tablet 1 tab PO Q4-6H PRN (Reason: pain) Qty: 10 0RF vit-ferrous sulfat-FA 27 mg iron- 0.8 mg tablet PO cholecalciferol (vitamin D3) 250 mcg (10,000 unit) capsule 250 mcg PO DAILY thyroid (pork) [CASING IN LINE FEEDER Thyroid] 15 mg tablet 15 mg PO DAILY progesterone micronized 200 mg capsule 200 mg PO ONCE PM Cmp-Testosterone Referrals: Igor Resendez DO [Primary Care Provider, Family Practice] Stand Alone Forms: Patient Portal/API
--- NOTE | 2025-02-02 16:41 | DI.US.S_ITS ---
PROCEDURE: US ABDOMEN LIMITED INDICATIONS: RUQ PAIN TECHNIQUE: Real-time scanning was performed of the abdominal and retroperitoneal organs, with image documentation. COMPARISON: None. FINDINGS: Liver: Homogeneous echotexture. No evidence of focal mass lesion. No intra hepatic biliary ductal dilatation Gallbladder: Sonolucent without cholelithiasis. No gallbladder wall thickening. No pericholecystic fluid or Mauro's sign. Common Bile Duct: 3.7 mm. Pancreas: Unremarkable as visualized Right Kidney: Appropriate in size and echotexture. No evidence of hydronephrosis. No shadowing calculi. No solid or cystic mass lesion. IMPRESSION: Unremarkable right upper quadrant ultrasound Approved by: Delmar Bell M.D. on 02/02/2025 at 17:13
[2025-02-02 16:45] LABS: HCG Quantitative /Beta subunit 199.63 mIU/mL
[2025-02-02 18:16] VITALS: O2SAT 99
[2025-02-02 18:17] VITALS: BP 120/76; PULSE 61; RESP 16; O2SAT 100
[2025-02-02 18:45] VITALS: BP 114/74; PULSE 58; RESP 16; O2SAT 98
== END 2025-02-02 18:48 | disposition home or self-care (01) ==
PROVIDERS: Emergency Provider Emergency Medicine; PCP Family Medicine
DX: R10.11 Right upper quadrant pain (principal)
CPT/HCPCS: 36415; 76705; 80053; 81003; 81015; 81025; 83690; 84702; 85025; 99283; 99284